=== PATIENT | female | born 1985 | race Caucasian/White ===

== ENCOUNTER → 2016-06-07 | Outpatient (CLI) | payer OTHER ==
[~2016-06-07] MED LIST: ABILIFY 10MG TA10 MG PO; ADDERALL5 MG PO; ATIVAN1 MG PO; CONCERTA36 MG PO; FLUOXETINE; FOLIC ACID 11 MG/TA1 PO; IBU800 M1 PO; IRON325 M1 PO; LAMICTAL 100MG100 MG PO; LAMOTRIGINE PO; MOTRIN 800800 MG/TAB PO; PERCOCET 325 MG1 TA2 PO; PRENATAL1 TA1 PO; PROZAC40 MG PO; RITALIN 20M20 MG/TAB PO; SERTRALINE PO; TRILEPTAL; WELLBUTRIN PO; XANAX0.5 MG PO; YAZ 28 3 MG-0.01 TAB PO; ZOLOFT 100MG100 MG PO; ZOLOFT20 MG/ML PO; focalin
== END ==
LOC: BHSO 15:01
DX: F31.81 Bipolar II disorder (principal)

== ENCOUNTER → 2016-07-20 | Outpatient (CLI) | payer OTHER | LOC: BHSO 14:38 | DX: F31.73 Bipolar disorder, in partial remission, most recent episode manic (principal) ==

== ENCOUNTER 2016-08-10 14:29 | Inpatient (IN) | payer OTHER ==
[2009-02-24 01:38] VITALS: BP 107/68
[~2016-08-10] VITALS: Ht 162.6 cm; Wt 91.8 kg
[~2016-08-10 14:29] MED LIST changes: -IBU800 M1 PO; -ZOLOFT 100MG100 MG PO
[2016-08-29] VITALS (38 sets, daily range): BP systolic 103–148; BP diastolic 57–85; PULSE 65–96; TEMP 97.4–98.5
[2016-08-29 07:41] LABS: BASO % 0.3 % (0.0-2.0); EOS % 0.3 % (0-4.0); GRAN # 4.8 (1.4-6.5); GRAN % 71.4 % (42.2-75.2); LYMPH # 1.4 (1.2-3.4); LYMPH % 20.4 % (20.0-51.0); MEAN CELL VOLUME 83 fl (80.0-100.0); MEAN CORPUSCULAR HGB CONC 33 g/dl (33.0-37.0); MONO # 0.5 (0.1-0.6); MONO % 7.2 % (1.7-9.3); PLATELET COUNT 178 K/mm3 (130-400); RED BLOOD COUNT 3.54 M/mm3 (4.10-5.30); REDCELL DISTRIBUTION WIDTH-CV 13.3 % (11.5-14.5); WHITE BLOOD COUNT 6.7 K/mm3 (4.8-10.8)
[2016-08-29 07:53] LABS: HEMATOCRIT 29.4 % (37.0-47.0); HEMOGLOBIN 9.8 g/dl (12.5-16.0); MEAN CORPUSCULAR HEMOGLOBIN 28 pg (27.0-31.0)
[2016-08-29] MEDS ORDERED: ZOLOFT 100MG100 MG PO (07:54)
[2016-08-30 03:00] VITALS: BP 106/69; PULSE 78; TEMP 98.1
[2016-08-30 07:30] VITALS: BP 117/69; PULSE 77; TEMP 97.9
[2016-08-30] MEDS ORDERED: PERCOCET 325 MG1 TA2 PO (08:39)
[2016-08-30] MEDS ORDERED: IBU800 M1 PO (08:39)
[2016-08-30 17:12] VITALS: BP 128/76; PULSE 75; TEMP 97.9
[2016-08-30 20:20] VITALS: BP 108/61; PULSE 74; TEMP 98.3
[2016-08-31 06:50] VITALS: BP 124/79; PULSE 80; TEMP 97.9
== END 2016-08-31 12:30 | disposition home or self-care (01) | DRG 775 ==
LOC: LDR 08-29 06:56 → OB 08-29 16:40 → EDSTATUS 09-05 10:16 → LDRO 09-05 11:52
PROVIDERS: Obstetrics & Gynecology
PROC: 10E0XZZ Delivery of Products of Conception, External Approach (ICD-10-PCS; principal; 2016-08-29)
PROC: 3E033VJ Introduction of Other Hormone into Peripheral Vein, Percutaneous Approach (ICD-10-PCS; 2016-08-29)
DX: O99.824 Streptococcus B carrier state complicating childbirth (principal); O75.89 Other specified complications of labor and delivery; Z3A.39 39 weeks gestation of pregnancy; Z37.0 Single live birth
CPT/HCPCS: J2210; J2400; J2540; J2590; J2795; J7120

== ENCOUNTER → 2016-09-26 | Outpatient (CLI) | payer OTHER ==
[~2016-09-26] MED LIST changes: +IBU800 M1 PO; +ZOLOFT 100MG100 MG PO
== END ==
LOC: BHSO 13:20
DX: F90.0 Attention-deficit hyperactivity disorder, predominantly inattentive type (principal)

== ENCOUNTER → 2016-11-28 | Outpatient (CLI) | payer OTHER | LOC: BHSO 12:54 | DX: F41.1 Generalized anxiety disorder (principal) ==

== ENCOUNTER → 2017-01-09 | Outpatient (CLI) | payer OTHER | LOC: BHSO 09:43 | DX: F31.73 Bipolar disorder, in partial remission, most recent episode manic (principal) ==

== ENCOUNTER → 2017-02-13 | Outpatient (CLI) | payer OTHER | LOC: BHSO 10:50 | DX: F31.73 Bipolar disorder, in partial remission, most recent episode manic (principal) ==

== ENCOUNTER → 2017-02-27 | Outpatient (CLI) | payer OTHER | LOC: BHSO 11:10 | DX: F31.32 Bipolar disorder, current episode depressed, moderate (principal) ==

== ENCOUNTER → 2017-03-22 | Outpatient (CLI) | payer OTHER | LOC: BHSO 14:00 | DX: F33.1 Major depressive disorder, recurrent, moderate (principal) ==

== ENCOUNTER → 2017-04-11 | Outpatient (CLI) | payer OTHER | LOC: BHSO 14:30 | DX: F31.73 Bipolar disorder, in partial remission, most recent episode manic (principal) ==

== ENCOUNTER → 2017-06-18 | Outpatient (CLI) | payer OTHER | LOC: BHSO 13:04 | DX: F90.0 Attention-deficit hyperactivity disorder, predominantly inattentive type (principal) | CPT/HCPCS: G0463 ==

== ENCOUNTER → 2017-09-10 | Outpatient (CLI) | payer OTHER | LOC: BHSO 13:02 | DX: F90.0 Attention-deficit hyperactivity disorder, predominantly inattentive type (principal) | CPT/HCPCS: G0463 ==

== ENCOUNTER → 2017-12-11 | Outpatient (CLI) | payer OTHER | LOC: BHSO 09:35 | DX: F90.0 Attention-deficit hyperactivity disorder, predominantly inattentive type (principal) | CPT/HCPCS: G0463 ==

== ENCOUNTER → 2018-05-17 | Outpatient (CLI) | payer OTHER ==
[~2018-05-17] MED LIST changes: +LAMICTAL XR300 MG PO; +PROTONIX 40MG T40 MG PO
== END ==
LOC: BHSO 13:00
DX: F31.74 Bipolar disorder, in full remission, most recent episode manic (principal)
CPT/HCPCS: G0463

== ENCOUNTER 2018-05-18 18:05 | Emergency (ER) | payer OTHER ==
[2009-02-24 01:38] VITALS: BP 107/68
[~2018-05-18] VITALS: Ht 165.1 cm; Wt 74.1 kg
[~2018-05-18 18:05] MED LIST changes: -LAMICTAL XR300 MG PO; -PROTONIX 40MG T40 MG PO
[2018-05-18 18:08] VITALS: TEMP 99.2
[2018-05-18 18:32] LABS: BASO # 0.1 (0.0-0.2); BASO % 0.5 % (0.0-2.0); EOS # 0.1 (0.0-0.7); EOS % 0.7 % (0-4.0); GRAN % 70.2 % (42.2-75.2); HEMATOCRIT 42.8 % (37.0-47.0); HEMOGLOBIN 14.1 g/dl (12.5-16.0); LYMPH # 2.6 (1.2-3.4); LYMPH % 22.6 % (20.0-51.0); MEAN CELL VOLUME 84 fl (80.0-100.0); MEAN CORPUSCULAR HEMOGLOBIN 28 pg (27.0-31.0); MEAN CORPUSCULAR HGB CONC 33 g/dl (33.0-37.0); MEAN PLATELET VOLUME 9.6 fl (7.4-10.4); MONO # 0.7 (0.1-0.6); MONO % 5.7 % (1.7-9.3); PLATELET COUNT 290 K/mm3 (130-400); RED BLOOD COUNT 5.11 M/mm3 (4.10-5.30); REDCELL DISTRIBUTION WIDTH-CV 13.2 % (11.5-14.5)
[2018-05-18 18:40] LABS: ALANINE AMINOTRANSFERASE 15 U/L (9-52); ALBUMIN 4.7 gm/dL (3.5-5.0); ALKALINE PHOSPHATASE 80 U/L (50-136); ANION GAP 13 mmol/L (7-16); AST,SGOT 16 U/L (15-37); BILIRUBIN,TOTAL 0.5 mg/dL (0.0-1.0); BLOOD UREA NITROGEN 10 mg/dL (7-17); CALCIUM 9.7 mg/dL (8.4-10.2); CARBON DIOXIDE 22 mmol/L (22-30); CHLORIDE 105 mmol/L (98-107); CREATININE, serum 0.67 mg/dL (0.52-1.25); GLUCOSE 99 mg/dL (74-106); LIPASE 142 U/L (23-300); POTASSIUM 3.2 mmol/L (3.4-5.0); SODIUM 140 mmol/L (137-145); TOTAL PROTEIN 8.2 gm/dL (6.4-8.2)
[2018-05-18 18:53] LABS: TROPONIN-I < 0.012 ng/mL (0.000-0.035)
[2018-05-18] MEDS ORDERED: LAMICTAL XR300 MG PO (19:34)
[2018-05-18] MEDS ORDERED: PROTONIX 40MG T40 MG PO (21:41)
[2018-05-18 22:10] VITALS: BP 118/83; PULSE 104
== END 2018-05-18 22:12 | disposition home or self-care (01) ==
LOC: COL.ER 18:05
PROVIDERS: Emergency Medicine
DX: R10.13 Epigastric pain (principal); I10 Essential (primary) hypertension; F17.210 Nicotine dependence, cigarettes, uncomplicated; F32.9 Major depressive disorder, single episode, unspecified; F41.9 Anxiety disorder, unspecified; Z86.711 Personal history of pulmonary embolism; Z86.718 Personal history of other venous thrombosis and embolism
CPT/HCPCS: C9113; J7030

== ENCOUNTER → 2018-05-28 | Outpatient (CLI) | payer OTHER ==
[~2018-05-28] MED LIST changes: +LAMICTAL XR300 MG PO; +PROTONIX 40MG T40 MG PO
== END ==
LOC: COL.RAD 09:35
DX: N28.1 Cyst of kidney, acquired (principal)

== ENCOUNTER → 2018-05-31 | Outpatient (CLI) | payer OTHER | LOC: COL.RAD 09:59 | DX: R10.11 Right upper quadrant pain (principal) | CPT/HCPCS: A9537 ==

== ENCOUNTER → 2018-07-15 | Outpatient (CLI) | payer OTHER | LOC: BHSO 10:37 | DX: F90.0 Attention-deficit hyperactivity disorder, predominantly inattentive type (principal) | CPT/HCPCS: G0463 ==

== ENCOUNTER → 2019-01-20 | Outpatient (CLI) | payer OTHER | LOC: BHSO 09:37 | DX: F31.81 Bipolar II disorder (principal) | CPT/HCPCS: G0463 ==

== ENCOUNTER → 2019-02-20 | Outpatient (CLI) | payer OTHER | LOC: BHSO 10:00 | DX: F90.0 Attention-deficit hyperactivity disorder, predominantly inattentive type (principal) | CPT/HCPCS: G0463 ==

== ENCOUNTER → 2019-07-22 | Outpatient (CLI) | payer OTHER | LOC: COL.RAD 08:35 | DX: R10.11 Right upper quadrant pain (principal) ==

== ENCOUNTER → 2020-05-19 | Outpatient (CLI) | payer OTHER | LOC: COL.VAS 12:59 | DX: R06.02 Shortness of breath (principal); Z86.16 Personal history of COVID-19 ==

== ENCOUNTER 2020-09-07 14:25 | Outpatient (RCR) | payer OTHER | END 2020-11-29 | disposition home or self-care (01) | LOC: WSOH | DX: S80.02XA Contusion of left knee, initial encounter (principal); F32.9 Major depressive disorder, single episode, unspecified; F39 Unspecified mood [affective] disorder; Z90.710 Acquired absence of both cervix and uterus; Y99.0 Civilian activity done for income or pay ==

== ENCOUNTER → 2020-11-16 | Outpatient (CLI) | payer OTHER | LOC: COL.RAD 07:05 | DX: M23.92 Unspecified internal derangement of left knee (principal) ==

== ENCOUNTER 2023-04-18 08:59 | Outpatient (RCR) | payer OTHER ==
[~2023-04-18 08:59] MED LIST changes: +VIIBRYD40 MG PO
== END 2023-04-22 | disposition home or self-care (01) ==
LOC: WSPT
DX: M54.42 Lumbago with sciatica, left side (principal); G89.29 Other chronic pain